=== PATIENT | male | born 1960 | race African-American/Black ===

== ENCOUNTER 2016-06-04 10:17 | Emergency (ER) | payer OTHER ==
[~2016-06-04] VITALS: Ht 188 cm; Wt 88.0 kg
[~2016-06-04 10:17] MED LIST: ALBU8HFA4 IH; AMLO-511 PO; ASPI-556 PO; ATOR40TA28 PO; BREX1TAB PO; CETI-260 PO; CITA20TA9 PO; FERR-89 PO; GABA-531 PO; METO25 PO; PRAS10TA6 PO; TRAZ-147 PO
[2016-06-04 11:01] LABS: BASOPHILS # (AUTO) 0.05 K/uL (0.00-0.20); EOSINOPHILS # (AUTO) 0.13 K/uL (0.00-0.70); EOSINOPHILS % (AUTO) 2.76 % (1.0-6.0); HEMATOCRIT 38.9 % (41-53); HEMOGLOBIN 12.7 g/dL (13.5-17.5); LYMPHOCYTES # (AUTO) 1.5 K/uL (1.0-4.8); MEAN CORPUSCULAR HEMOGLOBIN 32.2 pg (26.0-34.0); MEAN CORPUSCULAR HGB CONC 32.6 G/dL (31.0-37.0); MEAN CORPUSCULAR VOLUME 99 fL (80-100); MONOCYTES # (AUTO) 0.4 K/uL (0.1-1.0); MONOCYTES % (AUTO) 8.5 % (2.0-9.0); NEUTROPHILS # (AUTO) 2.7 K/uL (1.8-7.7); NEUTROPHILS % (AUTO) 56.7 % (40.0-70.0); PLATELET COUNT (AUTO) 227 K/uL (150-450); RED BLOOD CELL COUNT(AUTO) 3.93 MIL/uL (4.50-5.90); WHITE BLOOD COUNT (AUTO) 4.8 K/uL (4.5-11.0)
[2016-06-04 11:13] LABS: ANION GAP 5 mmol/L (8-16); CALCIUM, TOTAL 9.1 mg/dL (8.8-10.5); CARBON DIOXIDE 32 mmol/L (22-29); CHLORIDE 104 mmol/L (98-107); CREATININE 0.84 mg/dL (0.60-1.30); GLOMERULAR FILTR. RATE CALC > 60 mL/min (>60); POTASSIUM 3.4 mmol/L (3.5-5.1); SODIUM SERUM 141 mmol/L (136-145); UREA NITROGEN, BLOOD 5 mg/dL (7-18)
[2016-06-04 11:22] LABS: B-TYPE NATRIURETIC PEPTIDE 68 pg/mL (0-100); PROTHROMBIN TIME 10.3 SEC (9.4-11.6)
[2016-06-04 11:37] LABS: ALANINE AMINOTRANSFERASE 31 U/L (12-78); ASPARTATE AMINOTRANSFERASE 21 U/L (15-37); BILIRUBIN,TOTAL 0.4 mg/dL (0.1-1.0); CREATINE KINASE MB 3.6 ng/mL (0-5); CREATINE KINASE, TOTAL 258 U/L (39-308); TOTAL PROTEIN, SERUM 8.6 g/dL (6.4-8.2)
[2016-06-04 11:58] LABS: ADD UA MICROSCOPIC NO; APPEARANCE,URINE CLEAR (CLEAR); GLUCOSE, URINE (UA) NEGATIVE (NEGATIVE); KETONES,URINE NEGATIVE (NEGATIVE); LEUKOCYTE ESTERASE ,URINE NEGATIVE (NEGATIVE); OCCULT BLOOD,URINE NEGATIVE (NEGATIVE); PROTEIN,URINE NEGATIVE (NEGATIVE)
[2016-06-04] MEDS ORDERED: NITROGLYCERIN 2% (1 GM=INCH) PACKET TP ONE (12:15)
[2016-06-04] MEDS ORDERED: ASPIRIN 325 MG TABLET PO ONE (12:15)
[2016-06-04 12:39] VITALS: BP 152/97
== END 2016-06-04 12:45 | disposition left against medical advice (07) ==
LOC: EMS 10:19
DX: R07.89 Other chest pain (principal); I11.9 Hypertensive heart disease without heart failure; I25.2 Old myocardial infarction; F17.210 Nicotine dependence, cigarettes, uncomplicated; F12.90 Cannabis use, unspecified, uncomplicated; Z88.5 Allergy status to narcotic agent; Z79.82 Long term (current) use of aspirin
CPT/HCPCS: 36415; 71010; 80053; 80307; 81003; 82550; 82553; 83880; 84484; 85025; 85610; 85730; 93005; 99285; G0480

== ENCOUNTER 2020-07-24 20:24 | Emergency (ER) | payer OTHER ==
[~2020-07-24] VITALS: Ht 185.4 cm; Wt 76.8 kg
[~2020-07-24 20:24] MED LIST changes: +AMLO-257 PO; -AMLO-511 PO; -CETI-260 PO; +CETI-450 PO; +CITA-144 PO; -CITA20TA9 PO; +GABA-1181 PO; -GABA-531 PO; -TRAZ-147 PO; +TRAZ-257 PO
[2020-07-25] MEDS ORDERED: IBUPROFEN 400 MG TABLET PO ONE (04:30)
[2020-07-25] MEDS ORDERED: ACETAMINOPHEN 325 MG TABLET PO ONE (04:30)
[2020-07-25 05:18] VITALS: BP 134/88
== END 2020-07-25 05:48 | disposition home or self-care (01) ==
LOC: EMS 20:29
DX: S98.132D Complete traumatic amputation of one left lesser toe, subsequent encounter (principal); M79.675 Pain in left toe(s); M79.89 Other specified soft tissue disorders; F17.210 Nicotine dependence, cigarettes, uncomplicated; I10 Essential (primary) hypertension; I25.2 Old myocardial infarction; F20.9 Schizophrenia, unspecified; F12.90 Cannabis use, unspecified, uncomplicated; Z88.5 Allergy status to narcotic agent; Z79.82 Long term (current) use of aspirin; X58.XXXD Exposure to other specified factors, subsequent encounter
CPT/HCPCS: 99283; 99406